=== PATIENT | male | born 1975 | race American Indian/Alaskan Native ===

== ENCOUNTER 2019-07-23 17:30 | Emergency (ER) | payer SELFPAY ==
[2019-07-23 19:28] VITALS: BP 133/82
--- NOTE | 2019-07-23 20:28 | Emergency Department Report ---
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 Patient states that his temperature has been normal he has had no fever. Patient just states that he is worried that he may have coughing at 19. He denies fever/shortness of breath/chest pain/abdominal pain/nausea vomiting or diarrhea or any other symptoms - ROS Review of Systems: As noted in HPI - Exam Vital Signs: Vital Signs 07/23/19 19:26 Temperature 97.9 F Pulse Rate 86 Respiratory 18 Rate Blood Pressure 133/82 O2 Sat by Pulse 100 Oximetry Physical Exam: GENERAL: Alert and oriented x3, no apparent distress, Normal Gait, atraumatic. LUNGS: Symetrical with respiration, No wheezing, no rales or crackles, CTAB. HEART: S1, S2 present, regular rate and rhythm without murmur, no rubs, no gallops. Non tender to palpation SKIN: Warm and dry, No lesions, No ulceration or induration present. MSE screening note: Focused history and physical exam performed. Due to findings the following was ordered: ED Medical Decision Making - Medical Decision Making I discussed risk factors with patient and how patient is negative for risk factors. I discussed with the patient he may follow-up with the primary care physician. Covid-19 fact sheet print out given to patient. Patient is in no acute or respiratory distress. ED Disposition for MSE Clinical Impression: Cough Disposition: Z-07 MED SCREENING EXAM-LEFT Is pt being admited?: No Does the pt Need Aspirin: No Condition: Stable Referrals: GRECIA DE LA ROSA MD [Primary Care Provider] - 3-5 Days
== END 2019-07-23 20:45 | disposition left against medical advice (07) ==
LOC: ED 17:30
DX: R05 Cough (principal)
CPT/HCPCS: 99281